=== PATIENT | female | born 1990 | race Caucasian/White ===

== ENCOUNTER 2019-05-18 10:00 | Inpatient (IN) ==
[2019-05-18] MEDS ORDERED: *HR* Nalbuphine 10 MG/ML AMPUL IVP PRN (11:10)
[2019-05-18] MEDS ORDERED: Famotidine 20 MG/2 ML VIAL IVP PRN (11:10)
[2019-05-18] MEDS ORDERED: Naloxone 0.4 MG/ML INJ IVP PRN (11:10)
[2019-05-18] MEDS ORDERED: Metoclopramide 10 MG/2 ML VIAL IVP PRN (11:10)
[2019-05-18] MEDS ORDERED: miSOPROStoL 25 MCG TABLET VG PRN (11:10)
[2019-05-18 11:44] LABS: Basophils % 0.5 %; Eosinophils # 0.1 K/mcL (0.0-0.6); Eosinophils % 0.9 %; Hematocrit 37.9 % (35.3-44.9); Hemoglobin 12.7 g/dL (11.5-15.4); Immature Granulocytes % 0.4 % (0-4); Lymphocytes # 1.5 K/mcL (0.6-4.6); Lymphocytes % 19.2 %; Mean Corpuscular HGB Conc 33.5 g/dL (31.6-35.5); Mean Corpuscular Hemoglobin 31.8 pg (28.0-33.3); Monocytes # 0.5 K/mcL (0.0-1.3); Neutrophils # 5.5 K/mcL (1.6-8.9); Platelet Count 199 K/mcL (140-400); Red Blood Count 3.99 M/mcL (3.82-4.97); Red Cell Distribution Width 12.4 % (11.5-14.5); White Blood Count 7.5 K/mcL (4.3-11.1)
[2019-05-18 11:50] LABS: Amphetamine Screen,Urine Negative ng/mL (Cutoff=1000); Barbiturate Screen,Urine Negative ng/mL (Cutoff=200); Benzodiazepines Screen,Urine Negative ng/mL (Cutoff=200); Cannabinoid Screen,Urine Negative ng/mL (Cutoff = 50); Cocaine Screen,Urine Negative ng/mL (Cutoff= 300); Opiate Screen,Urine Negative ng/mL (Cutoff=300); Phencyclidine Screen,Urine Negative ng/mL (Cutoff=25)
[2019-05-18] MEDS ORDERED: Bupivacaine-MPF 0.25% 10 ML VIAL EP ONE (12:59)
[2019-05-18] MEDS ORDERED: EPHEDrine 50 MG/ML VIAL IVP PRN (12:59)
[2019-05-18] MEDS ORDERED: *HR* FentaNYL (PF) 100 MCG/2 ML VIAL EP ONE (12:59)
[2019-05-18] MEDS ORDERED: *HR* FentaNYL (PF) 100 MCG/2 ML VIAL ONE (13:01)
[2019-05-18] MEDS ORDERED: Bupivacaine-MPF 0.25% 10 ML VIAL ONE (13:01)
[2019-05-18] MEDS: Ringers Solution, Lactated 1,000 ML IVC SCH ×2 (14:46→16:08)
[2019-05-18] MEDS: Epidural Premix (fent/bupiv) 110 ML EP SCH ×2 (16:04→22:03)
[2019-05-18] MEDS ORDERED: Ondansetron 4 MG/2 ML VIAL IVP PRN (21:54)
[2019-05-18] MEDS ORDERED: Oxytocin 20 units/ LR 1000 mL 20 UNIT/1,000 ML BAG IVC ONE (22:45)
[2019-05-19] MEDS ORDERED: Oxytocin 20 units/ LR 1000 mL 20 UNIT/1,000 ML BAG IVC ONE (00:17)
[2019-05-19] MEDS ORDERED: Lanolin 7 G OINT...G. TP PRN (03:07)
[2019-05-19] MEDS ORDERED: Ibuprofen 600 MG TABLET PO PRN (03:07)
[2019-05-19] MEDS ORDERED: Oxytocin 20 units/ LR 1000 mL 20 UNIT/1,000 ML BAG IVC SCH (03:07)
[2019-05-19] MEDS ORDERED: Benzocaine/Menthol 56 GM AEROSOL SPRAY TP PRN (03:07)
[2019-05-19] MEDS ORDERED: Acetaminophen 325 MG TABLET PO PRN (03:07)
[2019-05-19] MEDS ORDERED: *HR* HYDROcodone/Acet 5/325 mg TABLET PO PRN (03:07)
[2019-05-19] MEDS ORDERED: Prenatal Vit/FA 1 EACH TABLET PO SCH (09:00)
[2019-05-19] MEDS: Prenatal Vit/FA 1 EACH TABLET PO SCH (09:51)
[2019-05-19 10:41] LABS: Basophils % 0.2 %; Eosinophils % 0.1 %; Hematocrit 32.2 % (35.3-44.9); Hemoglobin 11.4 g/dL (11.5-15.4); Immature Granulocytes % 0.5 % (0-4); Lymphocytes # 1.1 K/mcL (0.6-4.6); Lymphocytes % 8.2 %; Mean Corpuscular HGB Conc 35.4 g/dL (31.6-35.5); Mean Corpuscular Hemoglobin 31.9 pg (28.0-33.3); Mean Corpuscular Volume 90.2 fL (83.0-100.0); Mean Platelet Volume 9.9 fL (9.4-12.4); Monocytes # 0.5 K/mcL (0.0-1.3); Monocytes % 3.9 %; Platelet Count 192 K/mcL (140-400); Red Blood Count 3.57 M/mcL (3.82-4.97); Red Cell Distribution Width 12.3 % (11.5-14.5); Segmented Neutrophils % 87.1 %
[2019-05-19 11:04] LABS: Neutrophils # 11.2 K/mcL (1.6-8.9); White Blood Count 12.8 K/mcL (4.3-11.1)
[2019-05-20] MEDS: Prenatal Vit/FA 1 EACH TABLET PO SCH (07:58)
[2019-05-20 08:21] VITALS: BP 116/79
== END 2019-05-20 14:45 | disposition home or self-care (01) | DRG 807 ==
LOC: 1NENULAB 10:13 → 1NENUOBS 05-19 03:55
PROVIDERS: ADMIT Obstetrics & Gynecology; ATTEND Obstetrics & Gynecology